=== PATIENT | male | born 1950 | race Caucasian/White ===

== ENCOUNTER 2020-07-15 09:23 | Inpatient (IN) | payer MEDICARE, OTHER, SELFPAY ==
[2020-07-15] VITALS (60 sets, daily range): BP systolic 109–164; BP diastolic 72–129; PULSE 36–141; RESP 9–47; TEMP 36.4–36.9; O2SAT 94–100
--- NOTE | 2020-07-15 09:30 | RT.EKG_ITS ---
APPROVED REPORT Exam: Resting ECG Patient Location: E HR:55 bpm ECG Measurements Heart Rate 55 AXIS IA 432 P 0 QRSd 95 QRS 136 QT 448 T 269 QTc 428 Conclusion Second degree AV block, Mobitz II...multiple P waves Anterior infarct, old...Q >40mS, abnormal ST-T, V2-V5
--- NOTE | 2020-07-15 09:30 | RT.EKG_ITS ---
APPROVED REPORT Exam: Resting ECG Patient Location: E HR:38 bpm ECG Measurements Heart Rate 38 AXIS IN 387 P -30 QRSd 102 QRS 118 QT 575 T -79 QTc 460 Conclusion Regular, bradycardic. Inferior t wave inversions. Second degree AV block, Mobitz II...multiple P wave s Atrial premature complex...SV complex w/ short R-R interval Anterolateral infarct, old...Q>40mS, abnrm ST-T, V3-V6,I,aVL
--- NOTE | 2020-07-15 09:57 | W.ED.GENAD ---
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 He has relocated to his home in [place], [place]. He recently returned from visiting family in [facility]. He states to me that he has had months of progressive exertional dyspnea that have begun to limit his activities. He states is particularly worse over the past 3 days. He states his primary care physician ordered a thallium stress test 3 weeks ago that was reported to be unremarkable. He is noted to have previous bradycardia and question of whether he should 'need a pacemaker'. He does note 4 to 5 pound weight gain over months time, notes pretibial edema that is persisted since being admitted in the winter for a cellulitis. He denies chest pain or palpitations. Patient is bradycardic with rates 38 mid 50s. He is otherwise pleasant in no acute distress. The initial EKG reveals a regular bradycardic rhythm with a second-degree AV block, ? Mobitz 1 vs 2.. Obtained patient's outpatient records from [facility]. Patient noted to have nuclear exercise stress test on June 27 which showed no injury or ischemia with normal LV systolic function. Today, troponin is negative, his BNP is elevated at 1798. Age corrected d-dimer is negative at 584. Chest x-ray with note of cardiomegaly, clear lungs per Dr. Oscar. While in the emergency department, on the monitor patient is noted to have heart rates drift down to 31. He is not symptomatic while at rest. EKGs and case discussed with cardiology at [facility]. Patient accepted in transfer to the service of Dr. Levin. No bed available at this time and we will admit to [facility] pending transfer HPI General Mode of arrival: ambulatory. Date/Time Provider Initiated Documentation: 07/15/20 09:24. Limitations to Documentation: no limitations. Information obtained by: patient. History of Present Illness 69 year old M presents to the emergency department with the chief complaint of Exertional dyspnea, described as moderate, Quality is described as dull, and is localized to the chest. Patient reports no radiation. Patient started experiencing this week(s) and it has been intermittent. Rest improves symptom(s), Movement worsens symptoms . Patient notes other (Minimal 4 to 5 pound weight gain. Trace lower extremity edema for months.); denies chest pain and cough. Patient did receive the following treatments prior to arrival, none Related Data Home Medications Medication Instructions Recorded Confirmed atorvastatin 07/15/20 07/15/20 fluticasone propionate INTRANASAL 07/15/20 07/15/20 Allergies Allergy/AdvReac Type Severity Reaction Status Date / Time meperidine [From Demerol] Allergy Hives Unverified 07/15/20 09:34 General Stated Complaint: SOB DARCY: 3 Review of Systems Narrative: Was visiting family in [facility]. No cough, fever, change to taste or smell. No change to bowel or bladder habits. Exertional shortness of breath that resolves with rest. Is been ongoing for months time. States is worse over 3 days. 8 systems reviewed and otherwise negative. Patient reports history of T wave inversions and AV block [facility] Social History Smoking/Tobacco Use Status: Never Alcohol Intake: current Alcohol Intake frequency: 0-2 drinks per day Drug use: Never Substance use type: does not use Do you feel safe at home: Yes Exam Narrative Exam Narrative: GEN: awake, alert, oriented 3. Pleasant, well groomed, interactive. HEAD: Normocephalic, atraumatic ENT: Mucous membranes moist, oropharynx unremarkable, External ear exam unremarkable EYES: PERRL, EOMI NECK: Full ROM, no DEB, no menigismus CHEST/RESP: Nontender, clear to auscultation bilateral, no wheeze/rhonchi/rales CARDIOVASCULAR: Distant, bradycardic, no murmur appreciated. 2+ Rad pulse bilateral ABDOMEN: Soft, nontender, no mass. +Bowel sounds EXT: Full ROM, trace bilateral pretibial edema, no rash Neuro: Grossly normal neurologic exam, conversant, interactive. Psych: Speech fluent, thoughts congruent, affect normal Course Vital Signs Vital signs: Vital Signs Temperature 36.4 C 07/15/20 09:31 Pulse 51 L 07/15/20 09:31 Respiratory Rate 20 09/11/20 09:31 Blood Pressure 155/91 H 07/15/20 09:31 Pulse Oximetry 98 07/15/20 09:31 Temperature 36.4 C 07/15/20 09:31 Temperature Source Oral 07/15/20 09:31 Pulse 51 L 07/15/20 09:31 Respiratory Rate 20 07/15/20 09:31 Blood Pressure 155/91 H 07/15/20 09:31 Blood Pressure Position Sitting 07/15/20 09:31 Pulse Oximetry 98 07/15/20 09:31 Oxygen Delivery Method Room Air 07/15/20 09:31 Oxygen Flow Rate 0 07/15/20 09:31 Pain Level 0 07/15/20 09:31
[2020-07-15 10:29] LABS: Abs Immature Grans 0.03 10^3/uL (0.0-0.06); Absolute Basophil Count 0.06 10^3/uL (0.0-0.2); Absolute Eosinophil Count 0.16 10^3/uL (0.0-0.7); Absolute Lymphocyte Count 2.09 10^3/uL (1.2-3.4); Absolute Monocyte Count 0.59 10^3/uL (0.1-0.8); Absolute Neutrophil Count 4.73 10^3/uL (1.2-6.7); Basophils % 0.8; Eosinophils % 2.1; HCT 39.4 % (40.0-50.0); HGB 13.2 g/dL (13.5-17.5); Immature Grans % 0.4; Lymphocytes % 27.3; MCH 31.7 pg (27.0-33.0); MCHC 33.5 % (32.0-36.0); MCV 94.5 fL (80-95); MPV 10.9 fL (8.0-11.0); Monocytes % 7.7; Neutrophils % 61.7; Nucleated RBC 0 %; Platelet Count 242 10^3/uL (130-400); RBC 4.17 10^6/uL (4.36-5.78); RDW 13.2 % (11.8-14.1); RDW-SD 45.9 fL; WBC 7.66 10^3/uL (4.4-10.8)
[2020-07-15 10:47] LABS: INR 1.1 (0.9-1.1); PTT Activated 24.3 sec (21.0-31.4); Prothrombin Time 11.4 sec (9.3-11.0)
[2020-07-15 10:49] LABS: ALT 54 U/L (16-63); AST 19 U/L (15-37); Albumin 3.8 g/dL (3.4-5.0); Alkaline Phosphatase 68 U/L (46-116); Anion Gap 5.2 mmol/L (3-11); BUN 22 mg/dL (7-18); Bilirubin, Total 0.6 mg/dL (0.2-1.0); CO2 29.8 mmol/L (21.0-32.0); CREATININE 1.29 mg/dL (0.70-1.30); Calcium 9.4 mg/dL (8.5-10.1); Chloride 105 mmol/L (98-107); Estimated GFR 55.06 (mL/min/1.73m2); Glucose 85 mg/dL (74-106); NT-proBNP 1798 pg/mL (<300); Potassium 4.1 mmol/L (3.5-5.1); Sodium 140 mmol/L (136-145); Total Protein 6.8 g/dL (6.4-8.2); Troponin I 0.05 ng/mL (<0.06)
--- NOTE | 2020-07-15 10:49 | DI.RAD_ITS ---
EXAM: XR PORTABLE CHEST AP CLINICAL HISTORY: Shortness of breath TECHNIQUE: 2D digital imaging was performed. COMPARISON: No exams were available for comparison FINDINGS: The heart is enlarged. The aorta is tortuous. The lungs appear clear. No infiltrate, effusion or p ulmonary edema is seen. There is no evidence of pneumothorax. IMPRESSION: Cardiomegaly, no acute abnormality. DATA REPOSITORY: RADIATION DOSE DELIVERED:
[2020-07-15 11:05] LABS: D-Dimer 584 ng/mlFEU (<500)
--- NOTE | 2020-07-15 13:18 | INITIAL_ITS ---
Care Management Initial Assess REASON FOR HOSPITALIZATION:: SOB, symptomatic bradycardia PAST MEDICAL HISTORY/PAST SURGICAL HISTORY:: bradycardia, hyperlipidemia Has patient been provided with info about the portal/API?: No Did the patient sign up for the portal?: No CODE STATUS:: Full Code INSURANCE COVERAGE / FINANCIAL ISSUES:: Medicare PRIMARY CARE PHYSICIAN:: No local. POTENTIAL DISCHARGE NEEDS:: Coordinated transfer. PATIENT/FAMILY EDUCATION NEEDS:: Review of transfer considerations; bed availability. ANTICIPATED BARRIERS TO DISCHARGE:: Bed availability. TRANSPORTATION:: EMS PLAN:: [facility] [place] for transfer but currently has no bed available. When bed becomes available he will transfer via EMS, coordinated by RN supervisor assembly stock.
[2020-07-15 13:48] LABS: Troponin I < 0.05 ng/mL (<0.06)
--- NOTE | 2020-07-15 15:44 | HPE_ITS ---
Date of service: 07/15/20 Time of Service: 15:47 Assessment and Plan Assessment and plan (1) Symptomatic bradycardia: Status: Acute Assessment and plan: HR intermittently decreases into the 30's. As low as 31 noted. Occurs while awake. No known recent signs/symptoms of a viral illness. No known recent tick bite. Check tick borne panel Check TSH Telemetry. External pacemakers in place. (2) Hyperlipidemia: Status: Acute Assessment and plan: Cont home Lipitor dose. (3) Second degree heart block: Status: Acute Assessment and plan: Mobitz 1 noted on telemetry monitoring intermitte ntly. Cont to monitor. Planning transfer tomorrow [place] [facility] [place]. History of Present Illness History of Present Illness Chief Complaint: Dyspnea Narrative: This is a 69 yo male with a h/o HLD who presente to the ED with c/o progressive dyspnea that had been with exertion, but during the night before admission he noted orthopnea. He endorses month of JERONIMO possibly beginning in November of this year. He has noted progression over the last 3 days. Three weeks ago he had a thallium stress test that was reportedly unremarkable. He has been told over many years that he has an arrythmia and may eventually require a pacemaker. He has noted 4-5 pounds of wt gain and trace pedal edema over the last several months. CXR in the ED showed cardiomegaly but no pulmonary edema. His NTProBNP was elevated at 1798. Troponin was negative. Radiation Control Technician, Dr. Levin, at [facility] [place] by ED physician. No bed availability today but will transfer there t omorrow. Review of Systems All systems reviewed & are unremarkable except as noted in HPI and below PFSH Social History Smoking/Tobacco Use Status: Never Alcohol Intake: current Alcohol Intake frequency: 0-2 drinks per day Drug use: Never Substance use type: does not use Do you feel safe at home: Yes Meds Home Medications and Allergies Home Medications Medication Instructions Recorded Confirmed Type atorvastatin 07/15/20 07/15/20 History fluticasone propionate INTRANASAL 07/15/20 07/15/20 History Allergies Allergy/AdvReac Type Severity Reaction Status Date / Time meperidine [From Demerol] Allergy Hives Unverified 07/15/20 09:34 Exam Const General: cooperative and no acute distress Nutritional Appearance: average body habitus Eyes Conjunctivae: conjunctivae normal Sclera: sclerae normal Pupils: PERRL Neck Neck: full ROM and no JVD Resp Effort & Inspection: normal respiratory effort Auscultation: clear to auscultation bilaterally Cardio Rate: bradycardic Rhythm: abnormal rhythm (Intermittent second degree block) GI Palpation: soft Percussion: normal to percussion Auscultation: normal bowel sounds Skin General skin exam: no rashes or lesions noted Extrem General: no clubbing, cyanosis or edema Psych Appearance: grossly normal Speech and Movement: speech and movement normal Mood: congruent mood Affect: normal affect Attitude: cooperative Thought Content: normal Results Labs Result diagrams: 07/15/20 10:15 07/15/20 10:15 Labs: Laboratory Results - last 24 hr 07/15/20 07/15/20 07/15/20 10:15 10:15 10:15 WBC 7.66 RBC 4.17 L Hgb 13.2 L Hct 39.4 L MCV 94.5 MCH 31.7 MCHC 33.5 RDW 13.2 Plt Count 242 MPV 10.9 Immature Gran % 0.4 Neutrophils % 61.7 Lymphocytes % 27.3 Monocytes % 7.7 Eosinophils % 2.1 Basophils % 0.8 Nucleated RBC % 0 Absolute Neutrophils 4.73 Absolute Lymphocytes 2.09 Absolute Monocytes 0.59 Absolute Eosinophils 0.16 Absolute Basophils 0.06 PT 11.4 H INR 1.1 APTT 24.3 D-Dimer 584 H Sodium 140 Potassium 4.1 Chloride 105 Carbon Dioxide 29.8 Anion Gap 5.2 BUN 22 H Creatinine 1.29 Estimated GFR/1.73 m2 55.06 Glucose 85 Calcium 9.4 Magnesium 2.0 Total Bilirubin 0.6 AST 19 ALT 54 Alkaline Phosphatase 68 Troponin I 0.05 NT-Pro-B Natriuret Pep 1798 H Total Protein 6.8 Albumin 3.8 07/15/20 13:25 WBC RBC Hgb Hct MCV MCH MCHC RDW Plt Count MPV Immature Gran % Neutrophils % Lymphocytes % Monocytes % Eosinophils % Basophils % Nucleated RBC % Absolute Neutrophils Absolute Lymphocytes Absolute Monocytes Absolute Eosinophils Absolute Basophils PT INR APTT D-Dimer Sodium Potassium Chloride Carbon Dioxide Anion Gap BUN Creatinine Estimated GFR/1.73 m2 Glucose Calcium Magnesium Total Bilirubin AST ALT Alkaline Phosphatase Troponin I < 0.05 NT-Pro-B Natriuret Pep Total Protein Albumin Last Vital Signs Temp 36.9 C 07/15/20 15:07 Pulse 57 L 07/15/20 13:46 Resp 19 07/15/20 13:50 BP 118/75 07/15/20 13:46 Pulse Ox 94 L 07/15/20 13:50 COVID-19 Screening Have you,or household,traveled outside [place] in last 14 days?: Yes Had IN PERSON contact w/suspected or confirmed C-19 person: No
[2020-07-15 16:02] LABS: TSH 2.42 uIU/mL (0.36-3.74)
[2020-07-15] MEDS: Heparin 5,000 UNITS/ML VIAL 5000 UNITS SC (16:36)
--- NOTE | 2020-07-15 18:52 | DSE_ITS ---
DS: Diagnosis Discharge Diagnosis (1) Symptomatic bradycardia: Status: Acute (2) Hyperlipidemia: Status: Acute (3) Second degree heart block: Status: Acute Discharge Plan Disposition Patient Disposition: [facility] Condition: Stable Discharge Details Reason For Visit: SYMPTOMATIC BRADYCARDIA Admit Date/Time: 07/15/20 13:17 Admit Provider: Keith Andrea Attending Provider: Keith Andrea Primary Care Provider: [facility]uyenLocal Hospital Course Hospital Course: See H&P for details. Patient was admitted for symptomatic bradycardia, found to have 2nd degree AV block (Mobitz type 2), with HR in the 30's. Patient had recent normal stress MPI study on June 27 done in [place] 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 Workup included negative troponin, elevated BNP of 1700 and CXR that demonstrated cardiomegaly but without acute pulmonary pathology. The ER called [facility] cardiology who accepted the patient to the service of Dr. Levin, however due to lack of beds at [facility] today, the patient was admitted to our ICU overnight awaiting transfer. Since the call to [facility] this afternoon a bed has become available and the patient is now being transferred. Home Meds and New Rx's Prescriptions: No Action atorvastatin 10 mg tablet RF: 0 fluticasone propionate 50 mcg/actuation spray,suspension INTRANASAL RF: 0 Discharge Instructions Activity:: bedrest Diet:: As Tolerated Discharge Orders Discharge Orders: Discharge Order (Routine); Ordered 07/15/20 Ordered By: Cornell Joaquin DS: Summary Status at Discharge Functional status at discharge: independent ambulation Overall status at discharge: patient is not back to baseline Mental Status: mental status grossly normal Speech and Movement: speech and movement normal Mood: congruent mood Affect: normal affect Time Spent with Patient providing and/or coordinating discharge services: Less than 30 minutes Exam Psych Mental Status: mental status grossly normal Speech and Movement: speech and movement normal Mood: congruent mood Affect: normal affect DS: Data Vitals/I&O Vitals and I&O: Vital Signs Temperature 36.8 C 07/15/20 17:19 Temperature Source Temporal Artery Scan 07/15/20 17:19 Pulse 57 L 07/15/20 13:46 Pulse Rhythm Irregular 07/15/20 10:32 Pulse Strength Normal 07/15/20 10:32 Pulse 55 L 07/15/20 13:50 Respiratory Rate 19 07/15/20 13:50 Respiratory Effort Short of Breath 07/15/20 17:19 Respiratory Depth Normal 07/15/20 17:19 Respiratory Pattern Normal 07/15/20 17:19 Blood Pressure 118/75 07/15/20 13:46 Blood Pressure Mean 86 07/15/20 13:46 Blood Pressure Position Supine 07/15/20 17:19 Pulse Oximetry 94 L 07/15/20 13:50 Oxygen Delivery Method Room Air 07/15/20 17:19 Oxygen Flow Rate 0 07/15/20 17:19 Pain Level 0 07/15/20 17:19 Intake & Output 07/14/20 07/15/20 07/15/20 23:59 11:59 23:59 Output Total 1100 / 1100 Balance -1100 / -1100 Weight 83.915 kg 83.915 kg Output: Urine 1100 / 1100 Other: Urine Color Yellow Urine Appearance Clear Urine Odor Normal Comment Voiding to commode 250cc clear yellow urine at this time. Voiding Methods Bedside Commode # Voids 1 Data Completed and Pending Labs on day of discharge: Labs from last 24 hours 07/15/20 07/15/20 07/15/20 Unknown 15:30 13:25 WBC RBC Hgb Hct MCV MCH MCHC RDW Plt Count MPV Immature Gran % Neutrophils % Lymphocytes % Monocytes % Eosinophils % Basophils % Nucleated RBC % Absolute Neutrophils Absolute Lymphocytes Absolute Monocytes Absolute Eosinophils Absolute Basophils PT INR APTT D-Dimer Sodium Potassium Chloride Carbon Dioxide Anion Gap BUN Creatinine Estimated GFR/1.73 m2 Glucose Calcium Magnesium Total Bilirubin AST ALT Alkaline Phosphatase Troponin I < 0.05 NT-Pro-B Natriuret Pep Total Protein Albumin TSH 2.42 A.phagocytophil DNA PCR Pending B. divergens/MO-1 PCR Pending Babesia duncani (PCR) Pending Babesia microti DNA PCR Pending Borrelia (PCR) Pending Lyme Disease Antibody Pending COVID-19 PCR Nasopharyn COVID-19 PCR E.chaffeensis DNA (PCR) Pending E.ewingii/canis DNA PCR Pending E. muris-like DNA (PCR) Pending Ref Test Perform Site 07/15/20 07/15/20 07/15/20 11:10 10:15 10:15 WBC 7.66 RBC 4.17 L Hgb 13.2 L Hct 39.4 L MCV 94.5 MCH 31.7 MCHC 33.5 RDW 13.2 Plt Count 242 MPV 10.9 Immature Gran % 0.4 Neutrophils % 61.7 Lymphocytes % 27.3 Monocytes % 7.7 Eosinophils % 2.1 Basophils % 0.8 Nucleated RBC % 0 Absolute Neutrophils 4.73 Absolute Lymphocytes 2.09 Absolute Monocytes 0.59 Absolute Eosinophils 0.16 Absolute Basophils 0.06 PT 11.4 H INR 1.1 APTT 24.3 D-Dimer 584 H Sodium Potassium Chloride Carbon Dioxide Anion Gap BUN Creatinine Estimated GFR/1.73 m2 Glucose Calcium Magnesium Total Bilirubin AST ALT Alkaline Phosphatase Troponin I NT-Pro-B Natriuret Pep Total Protein Albumin TSH A.phagocytophil DNA PCR B. divergens/MO-1 PCR Babesia duncani (PCR) Babesia microti DNA PCR Borrelia (PCR) Lyme Disease Antibody COVID-19 PCR Pending Nasopharyn COVID-19 PCR Pending E.chaffeensis DNA (PCR) E.ewingii/canis DNA PCR E. muris-like DNA (PCR) Ref Test Perform Site Pending 07/15/20 10:15 WBC RBC Hgb Hct MCV MCH MCHC RDW Plt Count MPV Immature Gran % Neutrophils % Lymphocytes % Monocytes % Eosinophils % Basophils % Nucleated RBC % Absolute Neutrophils Absolute Lymphocytes Absolute Monocytes Absolute Eosinophils Absolute Basophils PT INR APTT D-Dimer Sodium 140 Potassium 4.1 Chloride 105 Carbon Dioxide 29.8 Anion Gap 5.2 BUN 22 H Creatinine 1.29 Estimated GFR/1.73 m2 55.06 Glucose 85 Calcium 9.4 Magnesium 2.0 Total Bilirubin 0.6 AST 19 ALT 54 Alkaline Phosphatase 68 Troponin I 0.05 NT-Pro-B Natriuret Pep 1798 H Total Protein 6.8 Albumin 3.8 TSH A.phagocytophil DNA PCR B. divergens/MO-1 PCR Babesia duncani (PCR) Babesia microti DNA PCR Borrelia (PCR) Lyme Disease Antibody COVID-19 PCR Nasopharyn COVID-19 PCR E.chaffeensis DNA (PCR) E.ewingii/canis DNA PCR E. muris-like DNA (PCR) Ref Test Perform Site [facility] Social History Smoking/Tobacco Use Status: Never Alcohol Intake: current Alcohol Intake frequency: 0-2 drinks per day Drug use: Never Substance use type: does not use Do you feel safe at home: Yes
[2020-07-15 22:46] LABS: COVID-19 RT-PCR UVMMC Result Negative (Negative)
== END 2020-07-15 19:48 | disposition short-term general hospital (02) | DRG 310 ==
LOC: ER 11:50 → ICU 14:22
PROVIDERS: Admitting Provider Family Medicine; Emergency Provider Emergency Medicine; PCP Internal Medicine Cardiovascular Disease; Visit Provider Family Medicine
DX: I44.1 Atrioventricular block, second degree (principal); E78.5 Hyperlipidemia, unspecified; R06.09 Other forms of dyspnea
CPT/HCPCS: 36415; 80053; 93005; 99222; 99238; 99285; U0003; 71045; 83735; 83880; 84443; 84484; 85025; 85379; 85610; 85730; 93010; 99284; J1644

== ENCOUNTER 2021-04-24 17:14 | Emergency (ER) | payer MEDICARE, OTHER, SELFPAY ==
[2021-04-24] VITALS (47 sets, daily range): BP systolic 101–113; BP diastolic 64–77; PULSE 50–58; RESP 5–23; TEMP 37; O2SAT 91–98
--- NOTE | 2021-04-24 17:15 | RT.EKG_ITS ---
APPROVED REPORT Exam: Resting ECG Reason for Exam: seizures Patient Location: E HR:54 bpm ECG Measurements Heart Rate 54 AXIS TN 300 P 52 QRSd 165 QRS -89 QT 565 T [id number] QTc 536 Conclusion Atrial-sensed ventricular-paced complexes...other complexes also detected Biventricular paced rhythm...non-simultaneous bi-vent pacing Physician: good capture
--- NOTE | 2021-04-24 17:30 | DI.CT_ITS ---
Exam(s) CT HEAD WO EXAM: CT HEAD WO CLINICAL HISTORY: seizure,previous brain biopsy, new small subdurals. TECHNIQUE: Imaging Protocol: Axial computed tomography images with coronal and sagittal reformatted images were created and reviewed COMPARISON: No exams were available for comparison FINDINGS: There is mild generalized cerebral atrophy. There are old left occipital and right frontoparietal cr aniotomies. No evidence of acute intracranial hemorrhage, mass effect, or midline shift. The orbital structures are unremarkable. The temporal bone structures appear intact. Visualized Paranasal sinuses/Mastoids: Clear. IMPRESSION: No evidence of acute intracranial process. RADIATION DOSE DELIVERED: Total DLP Total DLP DATA REPOSITORY: All CT scans at this facility are submitted to the National Radiology Data Registry (NRDR) Dose Index Registry (DIR) with the [employer] ([employer]). RADIATION OPTIMIZATION: All CT scans at this facility use at least one of these dose optimization te chniques: automated exposure control; mA and/or kV adjustment per patient size (includes targeted exa ms where dose is matched to clinical indication); or iterative reconstruction.
--- NOTE | 2021-04-24 17:32 | DI.RAD_ITS ---
Exam(s) XR CHEST 1V IN DI DEPT EXAM: XR CHEST 1V IN DI DEPT CLINICAL HISTORY: seizure, r/o pneumonia. TECHNIQUE: 2D digital imaging was performed. COMPARISON: CR XR PORTABLE CHEST AP from 07/15/2020 FINDINGS: LUNGS: Clear. No pleural abnormality seen. HEART: There appears to be borderline cardiomegaly. MEDIASTINUM: Normal. There is a transvenous cardiac pacemaker in position. IMPRESSION: No acute pulmonary findings. DATA REPOSITORY: RADIATION DOSE DELIVERED: Total DLP
[2021-04-24 18:01] LABS: Abs Immature Grans 0.03 10^3/uL (0.0-0.06); Absolute Basophil Count 0.06 10^3/uL (0.0-0.2); Absolute Eosinophil Count 0.18 10^3/uL (0.0-0.7); Absolute Lymphocyte Count 1.91 10^3/uL (1.2-3.4); Absolute Monocyte Count 0.75 10^3/uL (0.1-0.8); Absolute Neutrophil Count 4.19 10^3/uL (1.2-6.7); Basophils % 0.8; Eosinophils % 2.5; HCT 37.9 % (40.0-50.0); HGB 12.8 g/dL (13.5-17.5); Immature Grans % 0.4; Lymphocytes % 26.8; MCH 31.4 pg (27.0-33.0); MCHC 33.8 % (32.0-36.0); MCV 92.9 fL (80-95); MPV 10.5 fL (8.0-11.0); Monocytes % 10.5; Nucleated RBC 0 %; Platelet Count 223 10^3/uL (130-400); RBC 4.08 10^6/uL (4.36-5.78); RDW 12.4 % (11.8-14.1); RDW-SD 42.4 fL; WBC 7.12 10^3/uL (4.4-10.8)
--- NOTE | 2021-04-24 18:05 | W.ED.GENAD ---
Discharge Plan Disposition Patient Disposition: HOME Condition: Stable Discharge Details Clinical Impression: Focal seizure Primary Care Provider: Tony Clayton ED Provider: Nathan Louie Home Meds and New Rx's Prescriptions: New levetiracetam [Keppra] 750 mg tablet 750 mg PO BID 90 Days Qty: 180 RF: 0 Continued atorvastatin 10 mg tablet 10 mg PO DAILY RF: 0 fluticasone propionate 50 mcg/actuation spray,suspension 2 spray INTRANASAL HS RF: 0 Eliquis 5 mg tablet 5 mg PO BID RF: 0 metoprolol succinate 25 mg tablet extended release 24 hr 12.5 mg PO BID RF: 0 amiodarone 200 mg tablet 200 mg PO DAILY RF: 0 cholecalciferol (vitamin D3) [Vitamin D3] 50 mcg (2,000 unit) Tablet 2,000 unit PO DAILY RF: 0 cetirizine [Zyrtec] 10 mg Tablet 10 mg PO DAILY RF: 0 furosemide 20 mg tablet 20 mg PO DAILY RF: 0 jbzsi-2a-rak-epa-fish oil 350-400 mg Capsule 1 cap PO DAILY RF: 0 ufeyscsepmnd-ulewwygh-xleeqd Tablet 1 tab PO DAILY RF: 0 coenzyme Q10 [CoQ-10] 100 mg Capsule PO DAILY RF: 0 Discontinued levetiracetam 500 mg tablet 500 mg PO BID RF: 0 Discharge Instructions Instructions: Recurrent Seizures in Adults (ED) Additional Instructions: Please take the 5 mg Valium tonight. At this time the CT scan per the radiologist shows no evidence of worsening of the subdural hematomas or other acute abnormalities. Dr. Tripathi requests changing your Keppra to 750 mg twice daily. Please continue to drink plenty of fluids, stay well-hydrated, and take your regular medications. Please follow-up as soon as possible with your neurologist for reassessment. You should not drive, operate machinery, climb heights (such as a ladder), swim, or bathe alone or do anything else which could be dangerous if you would have another seizure. Please abide by this for the next 6 months or until cleared by your neurologist physician. If you notice any worsening of your symptoms, or any new symptoms such as vomiting, diarrhea, fever, chills, shortness of breath, chest pain, numbness, weakness, or fainting , please return immediately to the emergency department for reevaluation. Please follow up with your primary care provider as soon as possible for reassessment and reevaluation. As always, it was a pleasure participating in your medical care today. Referrals: Tony Clayton [Primary Care Provider] - Discharge Data Discharge Date/Time-TO BE ENTERED AT DEPARTURE: 04/24/21 22:30 Medical Decision Making This is a 70-year-old male with a past medical history hypertrophic cardiomyopathy with a pacemaker defibrillator, hypertension, atrial fibrillation with an ablation, and left-sided focal seizures chronically. Patient is left-hand dominant. Patient presents today for evaluation of a repeat onset of his left-sided focal seizure. Of historical note the patient started having focal seizures back in January, he was started on Keppra 500 twice daily. MRI showed notable abnormalities which biopsy eventually revealed to be small hemorrhagic infarcts. The patient had a repeat MRI in [place] just this morning which demonstrated evidence of improvement of the previous biopsy lesions, with the addition of 2 new small subdural parietal hematomas. These were very small in the MRI, and the patient immediately drove up from [facility] where he had the MRI back up here to his home in [place]. Unfortunately 45 minutes prior to his arrival here he had a return of his very subtle left-sided twitching which is indicative of his focal seizures. He contacted his neurologist from [place], who then contacted the emergency department and informed us of his history. She recommended he come in for further assessment. Aside for the mild twitch the patient denies any other complaints. He denies significant headache, neck pain, vision changes, numbness, tingling, weakness, fever, chills, cough, shortness of breath, sore throat, urinary frequency or dysuria, alcohol use, drug use, or fall or trauma. He denies any any missing medication doses. He did take an extra 500 mg Keppra prior to arrival. Patient does admit to drinking a small amount of alcohol 2 days ago, but none today. Physical exam demonstrates no focal neurologic deficits, no evidence of large grand mal seizure at all. The sensation of twitching that the patient does feel I am not able to visually identify, however I certainly do believe the patient had sensations that he is currently feeling. Upon speaking with his neurologist her request at this time is that we perform a repeat CAT scan to evaluate for any changing in the size of the subdural hematomas, to load the patient with 2 g of Keppra and increase his daily outpatient dose to 750 mg twice daily. We will evaluate for sources of infection, get a UA, get a portable chest x-ray, evaluate for electrolyte abnormalities, monitor closely and reassess. The neurologist was Dr. Andra Voss 10:20 PM Patient's laboratory work-up has returned and is relatively stable. No white count bandemia or left shift. Electrolytes stable. Troponin normal. EKG stable. Thyroid function/free T4 stable. Urinalysis negative for infection. Initially on reassessment the patient was doing well and had no return of his seizure, however shortly after reassessment he did develop a return of his mild focal seizure. We did try to contact the patient's neurologist Dr. Tripathi multiple times unfortunately we are unable to. Eventually the call center did refer back to and I discussed the case with her. She had no additional recommendations at this time aside for potential importance of Valium for breakthrough. We did give 5 mg of IV Valium here the patient had complete resolution of his focal seizures no returns. He and his feel well and would like to go home. Repeat neurologic exam demonstrates no abnormalities. Patient stable. Patient will be discharged home with new prescription for Keppra 750 twice daily, as well as 5 mg of oral Valium as needed which she does have multiple tablets at home he states. Recommend close follow-up with neurology. I have extensively reviewed the treatment plan and discharge instructions with the patient and their family. I have addressed all patient concerns at this time. The patient and family was made aware of what symptoms to monitor for that would warrant a return to the emergency department. Discussed the plan with the patient and family, they demonstrate verbal understanding and agreement with our assessment and plan at this time. The documentation in this chart was dictated using aCon dictation software. Please excuse any dictation errors. IMPRESSION: No evidence for acute cardiopulmonary disease. Thank you for allowing us to participate in the care of your patient. Dictated and Authenticated by: Nader Valle MD 04/24/2021 6:45 PM Eastern Time ([place] & [place]) FINDINGS: Brain: Normal. Unremarkable white matter. No hemorrhage. No mass effect. Cerebral ventricles: No ventriculomegaly. Paranasal sinuses: Visualized sinuses are unremarkable. No fluid levels. Mastoid air cells: Visualized mastoid air cells are well aerated. Bones/joints: There are postsurgical changes of left parietooccipital and right frontal craniotomy. Soft tissues: Unremarkable. IMPRESSION: 1. No evidence for acute intracranial abnormality. 2. Postsurgical changes of right and left-sided craniotomies. Thank you for allowing us to participate in the care of your patient. Dictated and Authenticated by: Nader Valle MD 04/24/2021 6:43 PM Eastern Time ([place] & [place]) HPI General Date/Time Provider Initiated Documentation: 04/24/21 17:32. HPI Narrative: This is a 70-year-old male with a past medical history hypertrophic cardiomyopathy with a pacemaker defibrillator, hypertension, atrial fibrillation with an ablation, and left-sided focal seizures chronically. Patient is left-hand dominant. Patient presents today for evaluation of a repeat onset of his left-sided focal seizure. Of historical note the patient started having focal seizures back in January, he was started on Keppra 500 twice daily. MRI showed notable abnormalities which biopsy eventually revealed to be small hemorrhagic infarcts. The patient had a repeat MRI in [place] just this morning which demonstrated evidence of improvement of the previous biopsy lesions, with the addition of 2 new small subdural parietal hematomas. These were very small in the MRI, and the patient immediately drove up from [facility] where he had the MRI back up here to his home in [place]. Unfortunately 45 minutes prior to his arrival here he had a return of his very subtle left-sided twitching which is indicative of his focal seizures. He contacted his neurologist from [place], who then contacted the emergency department and informed us of his history. She recommended he come in for further assessment. Aside for the mild twitch the patient denies any other complaints. He denies significant headache, neck pain, vision changes, numbness, tingling, weakness, fever, chills, cough, shortness of breath, sore throat, urinary frequency or dysuria, alcohol use, drug use, or fall or trauma. He denies any any missing medication doses. He did take an extra 500 mg Keppra prior to arrival. Patient does admit to drinking a small amount of alcohol 2 days ago, but none today. Related Data Home Medications Medication Instructions Recorded Confirmed atorvastatin 10 mg PO DAILY 07/15/20 04/24/21 fluticasone propionate 2 spray INTRANASAL HS 07/15/20 04/24/21 Eliquis 5 mg PO BID 04/24/21 04/24/21 amiodarone 200 mg PO DAILY 04/24/21 04/24/21 cetirizine [Zyrtec] 10 mg PO DAILY 04/24/21 04/24/21 cholecalciferol (vitamin D3) 2,000 unit PO DAILY 04/24/21 04/24/21 [Vitamin D3] coenzyme Q10 [CoQ-10] mg PO DAILY 04/24/21 furosemide 20 mg PO DAILY 04/24/21 04/24/21 levetiracetam [Keppra] 750 mg PO BID 90 Days #180 tab 04/24/21 metoprolol succinate 12.5 mg PO BID 04/24/21 04/24/21 izrpnejtuqoh-myyojrue-sfeony 1 tab PO DAILY 04/24/21 04/24/21 tmmom-3o-dab-epa-fish oil 1 cap PO DAILY 04/24/21 04/24/21 Previous Rx's Medication Instructions Recorded levetiracetam [Keppra] 750 mg PO BID 90 Days #180 tab 04/24/21 Allergies Allergy/AdvReac Type Severity Reaction Status Date / Time meperidine [From Demerol] Allergy Hives Unverified 04/24/21 17:32 General Stated Complaint: Seizure DARCY: 2 Review of Systems All systems reviewed & are unremarkable except as noted in HPI and below PFSH Social History Smoking/Tobacco Use Status: Never Smoking risk assessment performed?: Yes Alcohol Intake: current Alcohol Intake frequency: 0-2 drinks per day Drug use: Never Substance use type: does not use Do you feel safe at home: Yes Do you feel safe in your relationship?: Yes Exam Narrative Exam Narrative: 1.Const: Well-nourished, Well-developed, appearing stated age 2.Eyes: PERRL, no conjunctival injection, and symmetrical lids. 3.ENT: Atraumatic external nose and ears. Moist MM. Neck: Symmetric, trachea midline, No thyromegaly. 4.CVS: +S1/S2, No murmurs or gallops. Peripheral pulses 2+ and equal in all extremities. Brisk capillary refill in all extremities. 5.RESP: Unlabored respiratory effort. Clear to auscultation bilaterally. No wheezes rales or rhonchi 6.GI: Soft, Nontender/Nondistended, No hepatosplenomegaly. No guarding or rebound. 7.MSK: Normocephalic/Atraumatic, Extremities w/o deformity or ttp No cyanosis or clubbing, Normal movement of all extremities, even though the patient feels a sensation of having the twitching seizure in his left neck and chest I do not see any visible evidence of it at this time that is grossly apparent. 8.Skin: Warm, Dry. No rashes or lesions. 9.Neuro: inspecting engineer II-XII grossly intact. Sensation grossly intact, no focal neurologic deficits. Patient has very subtle decrease in sensation over his left lateral neck which seems to be intermittent and associated with his seizures. All 6 cardinal planes of vision are fully intact. No evidence of rotatory or vertical nystagmus. The patient demonstrated a normal emprte-gucx-yfbarv, good dexterity. There was no evidence of dysdiadochokinesia. Patient was able to ambulate without difficulty. There was no wide-based gait. Romberg testing was normal. Zicu-pm-deph testing was normal. Sensation was intact bilaterally as well as muscle strength bilaterally for all extremities. Patient was able to verbalize butter cup with no slurring, or miss pronunciation. 10.Psych: (AAO) x3. Appropriate mood and affect Course Vital Signs Vital signs: Vital Signs Temperature 37 C 04/24/21 17:16 Pulse 58 L 04/24/21 17:16 Respiratory Rate 18 04/24/21 17:16 Blood Pressure 113/76 04/24/21 17:16 Pulse Oximetry 97 04/24/21 17:16 Temperature 37 C 04/24/21 17:16 Temperature Source Skin 04/24/21 17:16 Pulse 58 L 04/24/21 17:16 Respiratory Rate 18 04/24/21 17:16 Respiratory Effort 04/24/21 17:47 Respiratory Depth Normal 04/24/21 17:47 Respiratory Pattern Normal 04/24/21 17:47 Blood Pressure 113/76 04/24/21 17:16 Pulse Oximetry 97 04/24/21 17:16 Oxygen Delivery Method Room Air 04/24/21 17:16 Oxygen Flow Rate 0 04/24/21 17:16 Pain Level 0 04/24/21 17:16 Lab/Test Results Lab/Test Results: Laboratory Tests Range/Units 04/24/21 17:00 WBC (4.4-10.8) 10^3/uL 7.12 RBC (4.36-5.78) 10^6/uL 4.08 L Hgb (13.5-17.5) g/dL 12.8 L Hct (40.0-50.0) % 37.9 L MCV (80-95) fL 92.9 MCH (27.0-33.0) pg 31.4 MCHC (32.0-36.0) % 33.8 RDW (11.8-14.1) % 12.4 Plt Count (130-400) 10^3/uL 223 MPV (8.0-11.0) fL 10.5 Immature Gran % 0.4 Neutrophils % 59.0 Lymphocytes % 26.8 Monocytes % 10.5 Eosinophils % 2.5 Basophils % 0.8 Nucleated RBC % % 0 Absolute Neutrophils (1.2-6.7) 10^3/uL 4.19 Absolute Lymphocytes (1.2-3.4) 10^3/uL 1.91 Absolute Monocytes (0.1-0.8) 10^3/uL 0.75 Absolute Eosinophils (0.0-0.7) 10^3/uL 0.18 Absolute Basophils (0.0-0.2) 10^3/uL 0.06
[2021-04-24 18:24] LABS: ALT 35 U/L (16-63); AST 17 U/L (15-37); Albumin 3.5 g/dL (3.4-5.0); Alkaline Phosphatase 83 U/L (46-116); Anion Gap 6.2 mmol/L (3-11); BUN 29 mg/dL (7-18); Bilirubin, Total 0.5 mg/dL (0.2-1.0); CO2 29.8 mmol/L (21.0-32.0); CREATININE 1.4 mg/dL (0.70-1.30); Calcium 8.9 mg/dL (8.5-10.1); Chloride 106 mmol/L (98-107); Estimated GFR 49.96 (mL/min/1.73m2); Glucose 102 mg/dL (74-106); Potassium 3.7 mmol/L (3.5-5.1); Sodium 142 mmol/L (136-145); TSH (W/Ref FT4) 3.97 uIU/mL (0.36-3.74); Total Protein 6.5 g/dL (6.4-8.2); Troponin I < 0.05 ng/mL (<0.06)
[2021-04-24 18:42] LABS: FREE T4 1.03 ng/dL (0.76-1.46)
--- NOTE | 2021-04-24 18:43 | DI.VRAD_ITS ---
PROCEDURE INFORMATION: Exam: CT Head Without Contrast Exam date and time: 04/24/2021 5:34 PM Age: 70 years old Clinical indication: Condition or disease; Convulsions or seizures; Patient HX: Seizure, previous brain biopsy, new small subdurals TECHNIQUE: Imaging protocol: Computed tomography of the head without contrast. COMPARISON: No relevant prior studies available. FINDINGS: Brain: Normal. Unremarkable white matter. No hemorrhage. No mass effect. Cerebral ventricles: No ventriculomegaly. Paranasal sinuses: Visualized sinuses are unremarkable. No fluid levels. Mastoid air cells: Visualized mastoid air cells are well aerated. Bones/joints: There are postsurgical changes of left parietooccipital and right frontal craniotomy. Soft tissues: Unremarkable. IMPRESSION: 1. No evidence for acute intracranial abnormality. 2. Postsurgical changes of right and left-sided craniotomies. Dictated and Authenticated by: Nader Valle MD. Ordering:MORRO Evans MD
--- NOTE | 2021-04-24 18:45 | DI.VRAD_ITS ---
PROCEDURE INFORMATION: Exam: XR Chest Exam date and time: 04/24/2021 5:36 PM Age: 70 years old Clinical indication: Other: Seizure TECHNIQUE: Imaging protocol: XR of the chest. Views: 1 view. COMPARISON: CR XR PORTABLE CHEST AP 07/15/2020 10:36 AM FINDINGS: Tubes, catheters and devices: There has been interval placement of a pacemaker. Lungs: No mass. No consolidation. Pleural spaces: Unremarkable. No pleural effusion. No pneumothorax. Heart/Mediastinum: The cardiomediastinal silhouette is unchanged. Bones/joints: Unremarkable. IMPRESSION: No evidence for acute cardiopulmonary disease. Dictated and Authenticated by: Nader Valle MD. Ordering:MORRO Evans MD
[2021-04-24] MEDS: levETIRAcetam 2,000 MG in Normal Saline 100 ML 400 MG IVPB (18:52)
[2021-04-24] MEDS: Normal Saline 500 ML IV (18:53)
[2021-04-24 19:05] LABS: Bilirubin Negative (Negative); Blood Negative (Negative); Clarity Clear (Clear); Glucose Negative (Negative); Ketones Negative (Negative); Leukocyte Esterase Negative (Negative); Nitrite Negative (Negative); Urobilinogen 0.2 EU/dL (Up TO 0.2); pH 5.5 (5-8)
[2021-04-24] MEDS: diazePAM 10 MG/2 ML SYR IVP (21:23)
== END 2021-04-24 22:30 | disposition home or self-care (01) ==
PROVIDERS: Emergency Provider Student in an Organized Health Care Education/Training Program; PCP Internal Medicine Cardiovascular Disease
DX: G40.009 Localization-related (focal) (partial) idiopathic epilepsy and epileptic syndromes with seizures of localized onset, not intractable, without status epilepticus (principal)
CPT/HCPCS: 80053; 93005; 96361; 96365; 96375; 99284; 70450; 71045; 81003; 84439; 84443; 84484; 85025; 93010; J1953; J3360

== ENCOUNTER 2022-05-14 03:23 | Outpatient (CLI) | payer MEDICARE, SELFPAY ==
[2022-05-14 12:41] LABS: Abs Immature Grans 0.03 10^3/uL (0.0-0.06); Absolute Basophil Count 0.06 10^3/uL (0.0-0.2); Absolute Eosinophil Count 0.08 10^3/uL (0.0-0.7); Absolute Lymphocyte Count 1.55 10^3/uL (1.2-3.4); Absolute Monocyte Count 0.44 10^3/uL (0.1-0.8); Absolute Neutrophil Count 5.12 10^3/uL (1.2-6.7); Basophils % 0.8; Eosinophils % 1.1; HCT 40.4 % (40.0-50.0); HGB 13.6 g/dL (13.5-17.5); Immature Grans % 0.4; Lymphocytes % 21.3; MCH 32.5 pg (27.0-33.0); MCHC 33.7 % (32.0-36.0); MCV 96 fL (80-95); MPV 10.4 fL (8.0-11.0); Neutrophils % 70.4; Platelet Count 227 10^3/uL (130-400); RBC 4.19 10^6/uL (4.36-5.78); WBC 7.28 10^3/uL (4.4-10.8)
[2022-05-14 13:31] LABS: COMMENT (LAB VIEW ONLY) 114.09 mg/dL; PROTEIN 6.6 mg/dL; Prot/Crea Ur Ratio 0.05
[2022-05-14 13:34] LABS: ALT 70 U/L (16-63); AST 34 U/L (15-37); Albumin 3.7 g/dL (3.4-5.0); Alkaline Phosphatase 77 U/L (46-116); Anion Gap 8.5 mmol/L (3-11); BUN 27 mg/dL (7-18); Bilirubin, Total 0.7 mg/dL (0.2-1.0); CO2 30.5 mmol/L (21.0-32.0); CREATININE 1.5 mg/dL (0.70-1.30); Chloride 104 mmol/L (98-107); Glucose 91 mg/dL (74-106); Potassium 4.1 mmol/L (3.5-5.1); Sodium 143 mmol/L (136-145); Total Protein 6.6 g/dL (6.4-8.2)
== END 2022-05-14 03:24 | disposition home or self-care (01) ==
PROVIDERS: PCP Internal Medicine Cardiovascular Disease
DX: I10 Essential (primary) hypertension (principal); I50.9 Heart failure, unspecified
CPT/HCPCS: 36415; 80053; 82565; 84156; 85025

== ENCOUNTER 2022-05-15 15:31 | Emergency (ER) | payer MEDICARE, OTHER, SELFPAY ==
[2022-05-15] VITALS (36 sets, daily range): BP systolic 92; BP diastolic 69; PULSE 112–119; RESP 13–26; TEMP 36.9; O2SAT 93–99
--- NOTE | 2022-05-15 15:30 | RT.EKG_ITS ---
APPROVED REPORT Exam: Resting ECG Reason for Exam: sob Patient Location: E HR:118 bpm ECG Measurements Heart Rate 118 AXIS MI 35 P 0 QRSd 193 QRS 264 QT 456 T 95 QTc 639 Conclusion Ventricular-paced rhythm Biventricular paced rhythm...non-simultaneous bi-vent pacing. V-paced. No STEMI. No siginficant rhythm change from prior except for faster rate. I have reviewed and interpreted ECG and agree with software generated interpretation.
[2022-05-15 17:47] LABS: Abs Immature Grans 0.03 10^3/uL (0.0-0.06); Absolute Basophil Count 0.04 10^3/uL (0.0-0.2); Absolute Eosinophil Count 0.09 10^3/uL (0.0-0.7); Absolute Lymphocyte Count 1.51 10^3/uL (1.2-3.4); Absolute Monocyte Count 0.34 10^3/uL (0.1-0.8); Absolute Neutrophil Count 5.32 10^3/uL (1.2-6.7); Basophils % 0.5; Eosinophils % 1.2; HCT 38.2 % (40.0-50.0); HGB 12.8 g/dL (13.5-17.5); Immature Grans % 0.4; Lymphocytes % 20.6; MCH 32.3 pg (27.0-33.0); MCHC 33.5 % (32.0-36.0); MCV 97 fL (80-95); MPV 11.4 fL (8.0-11.0); Monocytes % 4.6; Neutrophils % 72.7; Platelet Count 214 10^3/uL (130-400); RBC 3.96 10^6/uL (4.36-5.78); RDW 13.2 % (11.8-14.1); RDW-SD 46.5 fL; WBC 7.33 10^3/uL (4.4-10.8)
[2022-05-15 18:11] LABS: ALT 62 U/L (16-63); AST 28 U/L (15-37); Albumin 3.4 g/dL (3.4-5.0); Alkaline Phosphatase 81 U/L (46-116); Anion Gap 9.8 mmol/L (3-11); BUN 27 mg/dL (7-18); Bilirubin, Total 0.5 mg/dL (0.2-1.0); CO2 26.2 mmol/L (21.0-32.0); CREATININE 1.5 mg/dL (0.70-1.30); Calcium 8.9 mg/dL (8.5-10.1); Chloride 104 mmol/L (98-107); Glucose 118 mg/dL (74-106); Magnesium 2.1 mg/dL (1.8-2.4); NT-proBNP 2096 pg/mL (<300); Potassium 3.9 mmol/L (3.5-5.1); Sodium 140 mmol/L (136-145); Total Protein 6.3 g/dL (6.4-8.2); Troponin I < 50 ng/L (<or=60)
[2022-05-15 18:25] LABS: D-Dimer 338 ng/mlFEU (<500)
--- NOTE | 2022-05-15 19:15 | DI.RAD_ITS ---
Exam(s) XR CHEST 2V PA LATERAL EXAM: XR CHEST 2V PA LATERAL CLINICAL HISTORY: Shortness of breath. TECHNIQUE: 2D digital imaging was performed. COMPARISON: CR,XR XR CHEST 1V IN DI DEPT from 04/24/2021 FINDINGS: 2 views: Left subclavian pacemaker again noted. Mild cardiomegaly again noted No mediastinal widening. Lungs are clear. No infiltrates nor pleural effusions. No pulmonary edema. No pneumothorax IMPRESSION: No acute pulmonary findings. DATA REPOSITORY: RADIATION DOSE DELIVERED:
--- NOTE | 2022-05-15 20:06 | DI.VRAD_ITS ---
PROCEDURE INFORMATION: Exam: XR Chest Exam date and time: 05/15/2022 7:32 PM Age: 71 years old Clinical indication: Shortness of breath; Prior surgery; Surgery date: 6+ months; Surgery type: Pacemaker placed in 1999; Patient HX: SOB for 4 days TECHNIQUE: Imaging protocol: Radiologic exam of the chest. Views: 2 views. COMPARISON: XR CHEST 1V IN DI DEPT 04/24/2021 6:11 PM FINDINGS: Tubes, catheters and devices: Cardiac pacemaker without gross hardware complication or change. Lungs: Question mild hyperexpansion and hyperlucency with mild diaphragmatic flattening suggesting possible COPD. Pulmonary vasculature grossly normal. No gross pulmonary infiltrates or edema pattern. Mild bandlike atelectasis or scarring in the lingula unchanged. Pleural spaces: No pleural effusion. No pneumothorax. Heart/Mediastinum: Heart size normal. No tracheal/mediastinal shift. Vasculature: Mild aortic ectasia/tortuosity. Bones/joints: No acute osseous abnormalities are identified. IMPRESSION: 1. No acute thoracic process. No significant change from 04/24/2021. 2. Question changes of COPD. Dictated and Authenticated by: Samm Silva MD. Ordering:YANELY Chen MD
[2022-05-15 21:06] LABS: Troponin I < 50 ng/L (<or=60)
[2022-05-15] MEDS: Furosemide 20 MG/2 ML VIAL IVP (22:09)
--- NOTE | 2022-05-15 22:09 | ED.GENADUL_ITS ---
Discharge Plan Disposition Patient Disposition: HOME Condition: Stable Discharge Details Clinical Impression: Increasing shortness of breath, Tachycardia Primary Care Provider: Pushpa Han ED Provider: Gustavo Aparicio Home Meds and New Rx's Prescriptions: No Action atorvastatin 10 mg tablet 10 mg PO DAILY fluticasone propionate 50 mcg/actuation spray,suspension 2 spray INTRANASAL HS Eliquis 5 mg tablet 5 mg PO BID amiodarone 200 mg tablet 200 mg PO BID cholecalciferol (vitamin D3) [Vitamin D3] 50 mcg (2,000 unit) Tablet 2,000 unit PO DAILY furosemide 20 mg tablet 20 mg PO DIRECTED Rx Instructions: Takes every other day. llyfh-[id number]-epa-fish oil 350-400 mg Capsule 1 cap PO DAILY emvpfevkelcm-eslowrur-rusmkd Tablet 1 tab PO DAILY coenzyme Q10 [CoQ-10] 100 mg Capsule 1 PO DAILY levetiracetam [Keppra] 500 mg Tablet 500 mg PO BID ipratropium bromide 21 mcg (0.03 %) [place],Non-Aerosol 1 spray INTRANASAL BID Rx Instructions: administer into each nostril diazepam [Valium] 5 mg Tablet 5 mg PO QHS PRN azelastine 205.5 mcg (0.15 %) [place],Non-Aerosol 1 spray INTRANASAL BID Rx Instructions: administer into each nostril Vyndamax 61 mg Capsule 61 mg PO DAILY Discharge Instructions Instructions: Dyspnea (ED) Additional Instructions: As per recommendations by your phlebotomy support tech please increase your Lasix to 40 mg daily. Also please text Dr. Parikh tomorrow at [phone] to further discuss follow-up and arrangement of cardioversion. It is very important that if you have any new or significant worsening of symptoms that you return immediately to the emergency department for reassessment and stabilization as needed. Discharge Data Discharge Date/Time-TO BE ENTERED AT DEPARTURE: 05/15/22 22:18 Medical Decision Making Patient presenting to the emergency department for chief complaint of palpitations and shortness of breath. Patient reports that this is been going on for the past 6 weeks and he has called and spoke with cardiology due to his significant cardiac history of cardiac amyloidosis and need of pacemaker for similar episodes. He states that they have recently increased his amiodarone that helped for a while but then he has had worsening symptoms. Over the last 4 days patient denies any chest pain, swelling to the extremities, fever chills or other symptoms. Physical exam is unremarkable with clear lung sounds, normal cardiac exam,. Equal bilateral pulses and no edema noted to the lower extremities. We will plan on checking patient's labs and performing EKG. Please see physician interpretation for full interpretation of EKG but patient appears to be in a paced rhythm with a rate of 118. Review of labs show a baseline anemia appears unchanged, negative D-dimer, negative initial troponin, CMP shows decreased renal function again at patient's baseline, normal mag, BNP significantly elevated at 2096. Chest x-ray was performed and is unremarkable. We did interrogate patient's pacemaker which shows a elevated heart failure waiting and a higher rate but no defibrillation episodes were noted on general review of interrogation report. We will consult with [facility] [place] as patient states in the past he has needed cardioversion for this. Given patient's significant history and otherwise stable condition I do not feel that emergent ER cardioversion is required but that urgent consideration of this procedure should be performed by cardiology. Spoke with Dr. Gomez at [facility] [place] whom stated that they had no beds or availability to do an ER to ER transfer for this procedure so recommended observation admission to our hospital until bed availability could be obtained. Informed patient of this recommendation and he stated that he would prefer to go home but was agreeable to me speaking with his phlebotomy support tech [facility]. Spoke with Dr. Parikh he was very familiar with the patient's condition and durati on of patient's symptoms where he has been in a accelerated ventricularly paced rhythm for a while. He recommended increasing patient's Lasix to see if this helps with the shortness of breath and for patient to contact him directly to arrange cardioversion on an outpatient basis unless condition changes. Discussed this recommendation with patient and patient was in agreement with this. Patient states clear understanding to return the emergency department for any new or significant worsening of symptoms otherwise to follow-up with cardiology. After discussion of diagnosis and plan of care patient has no further needs, questions, or concerns and states clear understanding to return to the emergency department for any worsening symptoms. This documentation was generated using [employer] system, please disregard any oddities of phrase or misspellings. Medical Records Medical records reviewed: Yes I reviewed the patient's medical records. Lab Data Lab results reviewed: Yes I reviewed the patient's lab results. HPI General Mode of arrival: ambulatory . Date/Time Provider Initiated Documentation: 05/15/22 16:17 . Limitations to Documentation: no limitations . Information obtained by: patient, family, RN notes reviewed and old records reviewed . History of Present Illness 71 year old M presents to the emergency department with the chief complaint of Palpitations, described as similar to prior episodes, Quality is described as other (Denies pain or discomfort), Patient reports no radiation. Patient started experiencing this week(s) (6) and it has been intermittent. No relieving factors improve symptom(s), No exacerbating factors reported . Patient notes malaise and shortness of breath; denies fever/chills and nausea/vomiting. Patient did receive the following treatments prior to arrival, other (Increased amiodarone) Related Data Home Medications Medication Instructions Recorded Confirmed atorvastatin 10 mg tablet 10 mg PO DAILY 07/15/20 05/15/22 fluticasone propionate 50 2 spray intranasal HS 07/15/20 05/15/22 mcg/actuation nasal spray,suspension amiodarone 200 mg tablet 200 mg PO BID 04/24/21 05/15/22 apixaban 5 mg tablet (Eliquis) 5 mg PO BID 04/24/21 05/15/22 cholecalciferol (vitamin D3) 50 2,000 unit PO DAILY 04/24/21 05/15/22 mcg (2,000 unit) tablet (Vitamin D3) coenzyme Q10 100 mg capsule 1 PO DAILY 04/24/21 (CoQ-10) furosemide 20 mg tablet 20 mg PO DIRECTED 04/24/21 05/15/22 okmrjhbgnobr-ajpgftgh-urktrq tablet 1 tab PO DAILY 04/24/21 05/15/22 nlixr0-nle-ppa-other mzzbt3t-ygfm 1 cap PO DAILY 04/24/21 05/15/22 oil 350 mg- 400 mg capsule azelastine 205.5 mcg (0.15 %) 1 spray intranasal BID 05/15/22 05/15/22 nasal spray diazepam 5 mg tablet (Valium) 5 mg PO QHS PRN 05/15/22 05/15/22 ipratropium bromide 21 mcg (0.03 1 spray intranasal BID 05/15/22 05/15/22 %) nasal spray levetiracetam 500 mg tablet 500 mg PO BID 05/15/22 05/15/22 (Keppra) tafamidis 61 mg capsule (Vyndamax) 61 mg PO DAILY 05/15/22 05/15/22 Allergies Allergy/AdvReac Type Severity Reaction Status Date / Time meperidine [From Demerol] Allergy Hives Unverified 04/24/21 17:32 General Stated Complaint: Palpitatns DARCY: 3 Review of Systems Constitutional Constitutional: Denies chills, Denies fever(s), Reports lethargy and Reports malaise Cardiovascular Cardiovascular: Reports as per HPI, Denies chest pain, Denies syncope, Reports rapid heart rate, Denies pedal edema, Denies edema, Reports dyspnea, Reports dyspnea on exertion, Reports orthopnea and Denies slow heart rate Respiratory Respiratory: Denies cough, Reports dyspnea and Reports dyspnea on exertion Gastrointestinal Gastrointestinal: Denies abdominal pain, Denies diarrhea and Denies vomiting Genitourinary Genitourinary: Denies difficulty urinating Musculoskeletal Musculoskeletal: Denies joint swelling and Denies muscle cramps Integumentary/Breasts Skin/Breast: Denies rash Neurologic Neurologic: Denies syncope Psychiatric Psychiatric: Denies anxiety PFSH All Active Problems (Updated 05/15/22 @ 22:13 by Gustavo Aparicio NP) Focal seizure (Acute) Increasing shortness of breath (Acute) Tachycardia (Acute) Second degree heart block (Acute) Symptomatic bradycardia (Acute) Bradycardia (Acute) Hyperlipidemia (Acute) Social History Smoking/Tobacco Use Status: Never Smoking risk assessment performed?: Yes Alcohol Intake: current Alcohol Intake frequency: 0-2 drinks per day Drug use: Never Substance use type: does not use Do you feel safe at home: Yes Do you feel safe in your relationship?: Yes Exam Const General: cooperative, healthy appearing, comfortable, no acute distress, not diaphoretic and not ill appearing Nutritional Appearance: average body habitus Orientation: alert, awake and oriented x3 Limitations: mental status not altered Neck Neck: normal visual inspection, full ROM, trachea midline, supple and no anterior neck swelling Carotids: normal carotid upstroke and no bruits Chest Chest: normal inspection of the chest Resp Effort & Inspection: normal respiratory effort and able to speak in complete sentences Auscultation: clear to auscultation bilaterally Cardio Jugular venous pressure: no JVD Palpation: normal PMI Rate: regular rate Rhythm: regular rhythm Heart Sounds: S1 normal, S2 normal, no click, no gallops, no murmurs and no rubs Bruits: no abdominal aortic bruits and no carotid bruits Pulses: radial pulses present bilaterally 2+ GI Inspection: normal to inspection Palpation: soft, no aortic enlargement, no pulsatile masses and nontender Auscultation: normal bowel sounds Skin General skin exam: no rashes or lesions noted Neuro General: patient alert, patient awake, patient oriented x3, tone normal and moves all extremities Course Vital Signs Vital signs: Vital Signs Temperature 36.9 C 05/15/22 15:49 Pulse 118 H 05/15/22 15:49 Respiratory Rate 14 05/15/22 15:49 Blood Pressure 92/69 L 05/15/22 15:49 Pulse Oximetry 93 05/15/22 15:49 Temperature 36.9 C 05/15/22 15:49 Temperature Source Oral 05/15/22 15:49 Pulse 118 H 05/15/22 15:49 Pulse 117 H 05/15/22 19:40 Respiratory Rate 16 05/15/22 19:40 Respiratory Effort Non-Labored 05/15/22 16:24 Blood Pressure 92/69 L 05/15/22 15:49 Blood Pressure Position Supine 05/15/22 15:49 Pulse Oximetry 94 05/15/22 19:40 Oxygen Delivery Method Room Air 05/15/22 15:49 Oxygen Flow Rate 0 05/15/22 15:49 Pain Level 0 05/15/22 16:27 Lab/Test Results Lab/Test Results: Laboratory Tests Range/Units 05/15/22 05/15/22 05/15/22 17:15 17:15 17:15 WBC (4.4-10.8) 10^3/uL 7.33 RBC (4.36-5.78) 10^6/uL 3.96 L Hgb (13.5-17.5) g/dL 12.8 L Hct (40.0-50.0) % 38.2 L MCV (80-95) fL 97 H MCH (27.0-33.0) pg 32.3 MCHC (32.0-36.0) % 33.5 RDW (11.8-14.1) % 13.2 Plt Count (130-400) 10^3/uL 214 MPV (8.0-11.0) fL 11.4 H Immature Gran % 0.4 Neutrophils % 72.7 Lymphocytes % 20.6 Monocytes % 4.6 Eosinophils % 1.2 Basophils % 0.5 Nucleated RBC % (0.0-0.3) % 0.0 Absolute Neutrophils (1.2-6.7) 10^3/uL 5.32 Absolute Lymphocytes (1.2-3.4) 10^3/uL 1.51 Absolute Monocytes (0.1-0.8) 10^3/uL 0.34 Absolute Eosinophils (0.0-0.7) 10^3/uL 0.09 Absolute Basophils (0.0-0.2) 10^3/uL 0.04 D-Dimer (<500) ng/mlFEU 338 Sodium (136-145) mmol/L 140 Potassium (3.5-5.1) mmol/L 3.9 Chloride (98-107) mmol/L 104 Carbon Dioxide (21.0-32.0) mmol/L 26.2 Anion Gap (3-11) mmol/L 9.8 BUN (7-18) mg/dL 27 H Creatinine (0.70-1.30) mg/dL 1.5 H Estimated GFR/1.73 m2 (mL/min/1.73m2) 46.00 Glucose (74-106) mg/dL 118 H Calcium (8.5-10.1) mg/dL 8.9 Magnesium (1.8-2.4) mg/dL 2.1 Total Bilirubin (0.2-1.0) mg/dL 0.5 AST (15-37) U/L 28 ALT (16-63) U/L 62 Alkaline Phosphatase (46-116) U/L 81 Troponin I (<or=60) ng/L < 50 NT-Pro-B Natriuret Pep (<300) pg/mL 2096 H Total Protein (6.4-8.2) g/dL 6.3 L Albumin (3.4-5.0) g/dL 3.4 Range/Units 05/15/22 20:40 WBC (4.4-10.8) 10^3/uL RBC (4.36-5.78) 10^6/uL Hgb (13.5-17.5) g/dL Hct (40.0-50.0) % MCV (80-95) fL MCH (27.0-33.0) pg MCHC (32.0-36.0) % RDW (11.8-14.1) % Plt Count (130-400) 10^3/uL MPV (8.0-11.0) fL Immature Gran % Neutrophils % Lymphocytes % Monocytes % Eosinophils % Basophils % Nucleated RBC % (0.0-0.3) % Absolute Neutrophils (1.2-6.7) 10^3/uL Absolute Lymphocytes (1.2-3.4) 10^3/uL Absolute Monocytes (0.1-0.8) 10^3/uL Absolute Eosinophils (0.0-0.7) 10^3/uL Absolute Basophils (0.0-0.2) 10^3/uL D-Dimer (<500) ng/mlFEU Sodium (136-145) mmol/L Potassium (3.5-5.1) mmol/L Chloride (98-107) mmol/L Carbon Dioxide (21.0-32.0) mmol/L Anion Gap (3-11) mmol/L BUN (7-18) mg/dL Creatinine (0.70-1.30) mg/dL Estimated GFR/1.73 m2 (mL/min/1.73m2) Glucose (74-106) mg/dL Calcium (8.5-10.1) mg/dL Magnesium (1.8-2.4) mg/dL Total Bilirubin (0.2-1.0) mg/dL AST (15-37) U/L ALT (16-63) U/L Alkaline Phosphatase (46-116) U/L Troponin I (<or=60) ng/L < 50 NT-Pro-B Natriuret Pep (<300) pg/mL Total Protein (6.4-8.2) g/dL Albumin (3.4-5.0) g/dL PAWSS Have you Been Recently Intoxicated or Drunk Within the Last 30 days?: No Have you Ever Experienced Previous Episodes of Alcohol Withdrawal?: No Have you ever Experienced Withdrawal Seizures?: No Have you ever Experienced Delirium Tremens(DT)s?: No Have you ever undergone Alcohol Rehabilitation Treatment (i.e, inpt ot outpatient treatment programs)?: No Have you ever Experienced Blackouts?: No Have you ever Combined Alcohol with other Downers within the last 90 days?: No Have you ever Combined Alcohol with any other Substance of Abuse during the last 90 days?: No Positive Blood Alcohol level on Presentation? [PCS.BAL]: No Evidence of Increased Autonomic Activity (i.e. HR>120, tremor, sweating, agitation, nausea)?: No Result: 0
== END 2022-05-15 22:18 | disposition home or self-care (01) ==
PROVIDERS: Emergency Provider Nurse Practitioner Family; PCP Internal Medicine
DX: R06.02 Shortness of breath (principal); R00.0 Tachycardia, unspecified; R00.2 Palpitations; R79.89 Other specified abnormal findings of blood chemistry
CPT/HCPCS: 80053; 93005; 96374; 99284; 71046; 83735; 83880; 84484; 85025; 85379; 93010; J1941

== ENCOUNTER 2022-07-03 19:03 | Outpatient (CLI) | payer MEDICARE, OTHER, SELFPAY ==
[2022-07-03 11:51] LABS: ALT 302 U/L (16-63); AST 155 U/L (15-37); Albumin 3.3 g/dL (3.4-5.0); Alkaline Phosphatase 120 U/L (46-116); Bilirubin, Direct 0.2 mg/dL (0.0-0.2); Bilirubin, Total 0.8 mg/dL (0.2-1.0); Total Protein 6.7 g/dL (6.4-8.2)
== END 2022-07-03 19:04 | disposition home or self-care (01) ==
LOC: LBO 19:04
PROVIDERS: PCP Internal Medicine; Visit Provider Internal Medicine Advanced Heart Failure and Transplant Cardiology
DX: I50.9 Heart failure, unspecified (principal)
CPT/HCPCS: 36415; 80076

== ENCOUNTER 2022-08-15 02:15 | Outpatient (CLI) | payer MEDICARE, OTHER, SELFPAY ==
[2022-08-15 16:56] LABS: ALT 88 U/L (16-63); AST 49 U/L (15-37); Albumin 3.7 g/dL (3.4-5.0); Alkaline Phosphatase 106 U/L (46-116); Bilirubin, Direct 0.2 mg/dL (0.0-0.2); Bilirubin, Total 0.7 mg/dL (0.2-1.0); Total Protein 6.6 g/dL (6.4-8.2)
== END 2022-08-15 02:16 | disposition home or self-care (01) ==
LOC: LBO 02:19
PROVIDERS: PCP Internal Medicine; Visit Provider Internal Medicine Advanced Heart Failure and Transplant Cardiology
DX: R94.5 Abnormal results of liver function studies (principal)
CPT/HCPCS: 36415; 80076